=== PATIENT | male | born 1950 | race Caucasian/White ===

== ENCOUNTER → 2018-01-03 16:46 | Outpatient (CLI) | payer MEDICARE ==
[2018-01-03 19:13] LABS: BASOPHILS 0.5 % (0-2); EOSINOPHILS 1.3 % (0-7); HEMATOCRIT 29.7 % (42.0-54.0); HEMOGLOBIN 9.6 g/dL (13.5-17.5); IMMATURE GRANULOCYTES 0.4 % (0-5); LYMPHOCYTES 16.6 % (15-50); MCH 26.7 pg (26.0-34.0); MCHC 32.3 g/dL (31.0-37.0); MCV 82.5 fL (80.0-100.0); MEAN PLATELET VOLUME 10.6 fL (7.4-10.4); MONOCYTES 7.4 % (2-11); NEUTROPHILS 73.8 % (40-80); PLATELET COUNT 322 10x3/uL (130-400); RDW 12.7 % (11.5-14.5); WBC 8.4 10x3/uL (4.8-10.8)
[2018-01-03 19:16] LABS: CREATININE - SERUM 1.9 mg/dL (0.6-1.3)
== END | disposition home or self-care (01) ==
LOC: D.LABREF 16:46
PROVIDERS: Internal Medicine Infectious Disease
DX: L03.032 Cellulitis of left toe (principal)